=== PATIENT | female | born 1970 | race African-American/Black ===

== ENCOUNTER 2020-10-25 09:28 | Emergency (ER) | payer BC, OTHER ==
[~2020-10-25] VITALS: Ht 162.6 cm; Wt 78.4 kg
--- NOTE | 2020-10-25 10:01 | NUR ---
ISO CART AND SIGNAGE AT DOORWAY. COVID SWAB BY ERP. PCXR COMPLETED.
--- NOTE | 2020-10-25 10:24 | NUR ---
XR RESULTS BACK,PT FOR RECHECK.
--- NOTE | 2020-10-25 11:17 | NUR ---
ADD ON LABS AND UA. PT AMBULATORY TO BR TO PROVIDE URINE SPECIMEN. URINE COLLECTED/SENT TO LAB. LABS DRAWN BY TECH.
[2020-10-25 11:22] LABS: BASOPHILS % (AUTO) 1 % (0-1); EOSINOPHILS % (AUTO) 2 % (1-7); LYMPHOCYTES % (AUTO) 34 % (22-44); MEAN CORPUSCULAR HGB CONC 32.3 g/dL (32.4-35.8); MEAN PLATELET VOLUME 7.4 fL (7.4-10.4); MONOCYTES % (AUTO) 4 % (2-9); NEUTROPHILS % (AUTO) 59 % (42-75); PLATELET COUNT 288 x10^3/uL (130-400); RED BLOOD COUNT 5.34 x10^6/uL (3.82-5.3); RED CELL DISTRIBUTION WIDTH 14.6 % (9.6-15.2)
[2020-10-25 11:26] LABS: MD NO
[2020-10-25 11:34] LABS: ALANINE AMINOTRANSFERASE 23 U/L (12-78); ALBUMIN 3.4 g/dL (3.4-5.0); CALCIUM 9.8 mg/dL (8.5-10.1); CREATININE 0.67 mg/dL (0.55-1.02)
[2020-10-25 11:34] LABS: MICROSCOPIC NOT IND
[2020-10-25 11:36] LABS: ALKALINE PHOSPHATASE 86 U/L (45-117); BILIRUBIN,TOTAL 0.2 mg/dL (0.2-1.0); TOTAL PROTEIN 7.5 g/dL (6.4-8.2)
[2020-10-25 11:37] VITALS: BP 145/97
[2020-10-25 11:50] LABS: ANION GAP 2 mmol/L (5-15); CHLORIDE 107 mmol/L (98-107)
--- NOTE | 2020-10-25 11:58 | NUR ---
ALL RESULTS BACK,PT FOR RECHECK.
== END 2020-10-25 12:14 | disposition home or self-care (01) ==
LOC: ED 10:22
DX: R05 Cough (principal); Z20.822 Contact with and (suspected) exposure to COVID-19; M94.0 Chondrocostal junction syndrome [Tietze]
CPT/HCPCS: 36415; 71045; 80053; 81003; 83690; 85025; 85379; 93005; 99285; U0003